=== PATIENT | female | born 1950 | race Caucasian/White ===

== ENCOUNTER 2016-06-12 17:56 | Emergency (ER) | payer OTHER ==
--- NOTE | ~2016-06-12 | CT71 ---
[facility] A Service [facility] RADIOLOGY TEXT RESULTS PATIENT: JOSE JUAN MILLIGAN LOCATION: SED : 54 UNIT #: [id number] AGE: [address]: Lizette Dennison SEX: F ORDER DR: [id number] [address] [address] [id number] E MR#: [id number] Acc #: [id number] NAME: JOSE JUAN MILLIGAN : 1950 SEX: F STUDY DATE/TIME: 06/12/2016 18:11 UNIT: SED ROOM: STUDY DESCRIPTION: CT Head Wo Contrast Attending Physician: Lizette Dennison Pa-C Ordering Physician: Lizette Dennison Pa-C Primary Care Physician: Mckayla Grier Aprn MEDICAL IMAGING REPORT This report is preliminary unless electronic signature is present. EXAM Head CT without contrast, 06/12/2016 HISTORY Laceration to top of head today, hit head on a tree branch while cutting grass; posterior neck pain. Hypertension. FINDINGS Multiple axial images were obtained from the skull base to vertex without intravenous contrast administration. This CT exam was performed with one or more of the following radiation dose reduction techniques: Automatic exposure control, adjustment of mA and/or kV according to patient size, and iterative reconstruction. The ventricles are normal in size, shape and position. There is no midline shift. There is no mass or mass effect, hemorrhage or acute infarct. Right maxillary sinusitis is noted. Superior frontal scalp laceration is noted. IMPRESSION Superior frontal scalp laceration. No intracranial abnormality. Dictated by... Narendra Doty M.D. THIS IS AN ELECTRONICALLY VERIFIED REPORT Narendra Doty M.D. at 06/13/2016 2:10 PM KRT/see TD: 06/12/2016 21:17 [facility] A Service [facility] RADIOLOGY TEXT RESULTS PATIENT: JOSE JUAN MILLIGAN LOCATION: SED : 54 UNIT #: [id number] AGE: [address]: Lizette Dennison SEX: F ORDER DR: JOB #: [id number] MEDICAL IMAGING REPORT Page 1 of 1
--- NOTE | ~2016-06-12 | CT52 ---
[facility] A Service [facility] RADIOLOGY TEXT RESULTS PATIENT: JOSE JUAN MILLIGAN LOCATION: SED : 54 UNIT #: [id number] AGE: [address]: Lizette Dennison SEX: F ORDER DR: [id number] [address] [address] [id number] E MR#: [id number] #: [id number] NAME: JOSE JUAN MILLIGAN : 1950 SEX: F STUDY DATE/TIME: 06/12/2016 18:20 UNIT: SED ROOM: STUDY DESCRIPTION: CT Cervical Spine Wo Cont Attending Physician: Lizette Dennison Pa-C Ordering Physician: Lizette Dennison Pa-C Primary Care Physician: Mckayla Grier Aprn MEDICAL IMAGING REPORT This report is preliminary unless electronic signature is present. EXAM CT scan of the cervical spine without contrast. DATE OF EXAM 06/12/2016 HISTORY Posterior neck pain after hitting head on a tree branch while cutting the grass today with laceration on top of head. TECHNIQUE This CT exam was performed with one or more of the following radiation dose reduction techniques: automatic exposure control, adjustment of mA and/or kV according to patient size, and iterative reconstruction. FINDINGS Spiral CT was performed through the cervical spine without intrathecal contrast administration, as per clinician request. Sagittal and coronal reconstructions were then performed through the cervical spine. The examination is somewhat limited for determination of discogenic disease due to the lack of intrathecal contrast. Sagittal reconstructions demonstrate straightening of the cervical spine with loss of the normal lordotic curve. There is degenerative change with moderate disc space narrowing from C4-5 through C6-7. Anterior and posterior osteophytes are seen from C4 through C7, and there is degenerative change involving the articular facets. There is no CT evidence of cervical spine fracture. IMPRESSION Multilevel degenerative change in the cervical spine. No CT evidence of cervical spine fracture. [facility] A Service [facility] RADIOLOGY TEXT RESULTS PATIENT: JOSE JUAN MILLIGAN LOCATION: SED : 54 UNIT #: [id number] AGE: [address]: Lizette Dennison SEX: F ORDER DR: Dictated by... Narendra Doty M.D. THIS IS AN ELECTRONICALLY VERIFIED REPORT Narendra Doty M.D. at 06/13/2016 2:14 PM ANTIONE/vanessa TD: 06/12/2016 22:20 JOB #: [id number] MEDICAL IMAGING REPORT Page 1 of 1
[~2016-06-12 17:56] MED LIST: ASPIRIN PO; BUPROPION XL300 MG PO; IBUPROFEN PO; LISINOPRIL PO; SIMVASTATIN20 MG PO; VITAMIN D2400 UNIT PO; ZOLOFT PO
== END 2016-06-12 19:55 | disposition home or self-care (01) ==
LOC: SED 17:56
DX: S01.01XA Laceration without foreign body of scalp, initial encounter (principal); I10 Essential (primary) hypertension; F17.210 Nicotine dependence, cigarettes, uncomplicated; Z23 Encounter for immunization; W20.8XXA Other cause of strike by thrown, projected or falling object, initial encounter; Y92.012 Bathroom of single-family (private) house as the place of occurrence of the external cause
CPT/HCPCS: 12002; 70450; 72125; 90471; 90715; 99284